=== PATIENT | female | born 1990 | race Caucasian/White ===

== ENCOUNTER 2017-01-07 04:31 | Emergency (ER) | payer OTHER ==
[~2017-01-07] VITALS: Ht 170.2 cm; Wt 76.2 kg
[~2017-01-07 04:31] MED LIST: ADVAIR 100/501 DISK IH; ADVAIR 250-501 EACH IH; BENTYL20 MG PO; Cipro PO; FLAGYL500 MG PO; HABITROL,NICODE21 MG TD; Proventil,Ventolin H IH
[2017-01-07 05:17] VITALS: BP 109/64
== END 2017-01-07 05:17 | disposition home or self-care (01) ==
LOC: EME 04:31
DX: L25.5 Unspecified contact dermatitis due to plants, except food (principal); H11.433 Conjunctival hyperemia, bilateral; F17.200 Nicotine dependence, unspecified, uncomplicated
CPT/HCPCS: 99281; 99284; J3301

== ENCOUNTER 2017-04-18 08:48 | Day surgery (SDC) | payer OTHER ==
[~2017-04-18] VITALS: Ht 167.6 cm; Wt 76.2 kg
[~2017-04-18 08:48] MED LIST changes: +LO LOESTRIN FE1 EACH PO; +PROAIR HFA8.5 GM IH
[2017-04-18 09:32] VITALS: BP 101/68
[2017-04-18 13:10] VITALS: BP 112/59
[2017-04-18 14:08] VITALS: BP 111/55
== END 2017-04-18 14:08 | disposition home or self-care (01) ==
LOC: SDC 08:48
PROC: 0UBC7ZX Excision of Cervix, Via Natural or Artificial Opening, Diagnostic (ICD-10-PCS; principal; 2017-04-18)
DX: N87.1 Moderate cervical dysplasia (principal); J45.909 Unspecified asthma, uncomplicated; F17.210 Nicotine dependence, cigarettes, uncomplicated
CPT/HCPCS: 88305; 88307; 88342 TC; J1100; J1170; J1885; J2250; J2405; J3010